=== PATIENT | female | born 1990 | race Caucasian/White ===

== ENCOUNTER 2016-12-27 20:28 | Emergency (ER) | payer BC ==
[2016-12-27 20:38] VITALS: BP 113/63
[2016-12-27] MEDS ORDERED: Bacitracin Oint 1 GM U/D Packet TOP ONE (21:14)
[2016-12-27] MEDS ORDERED: Lidocaine 1% 30 ML SDV INJECT ONE (21:14)
--- NOTE | 2016-12-27 21:42 | EDM.PDOC ---
ED HPI Trauma - General Chief Complaint: Upper Extremity Injury/Pain Stated Complaint: finger problem [id number] Time Seen by Provider: 12/27/16 21:15 Source: Reports: Patient History Limitations: Reports: No limitations - History of Present Illness INITIAL COMMENTS - FREE TEXT/NARRATIVE: This 26 yo female patient reports to the ED with a cactus needle imbedded in her left thumb. Symptom Onset Date: 12/27/16 Occurred When: just prior to arrival Occurred Where: home Method of Injury: other Severity: mild Pain/Injury Location: Reports: upper extremity, left Consciousness: Reports: no loss of consciousness Associated Symptoms: Reports: no other symptoms Allergies/ADRs: Allergies No Known Allergies Allergy (Verified 12/27/16 20:38) Home Medications: Ambulatory Orders . [No Known Home Meds] 12/27/16 [Confirmed 12/27/16] Past Medical History - Past Health History Medical/Surgical History: Denies Medical/Surgical History - Infectious Disease History Infectious Disease History: Reports: Chicken pox Social & Family History - Tobacco Use Smoking Status *Q: Never Smoker Second Hand Smoke Exposure: No - Recreational Drug Use Recreational Drug Use: No Review of Systems - Review of Systems Review Of Systems: ROS reveals no pertinent complaints other than HPI. 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 Complications:: No Course - Vital Signs Last Recorded V/S: Last Vital Signs Temp 37.2 C 12/27/16 20:35 Pulse 66 12/27/16 20:35 Resp 18 12/27/16 20:35 BP 113/63 12/27/16 20:35 Pulse Ox 100 12/27/16 20:35 - Orders/Labs/Meds Meds: Medications Discontinued Medications Generic Name Dose Route Start Last Admin Trade Name Clint PRN Reason Stop Dose Admin Bacitracin 1 dose 12/27/16 21:14 12/27/16 21:18 Bacitracin Oint 1 Gm TOP 12/27/16 21:15 1 dose ONETIME ONE Administration Lidocaine HCl 30 ml 12/27/16 21:14 12/27/16 21:17 Xylocaine-Mpf 1% INJECT 12/27/16 21:15 30 ml ONETIME ONE Administration Departure - Departure Time of Disposition: 21:39 Disposition: Home, Self-Care 01 Condition: fair Clinical Impression: Foreign body (FB) in soft tissue Instructions: Sliver Removal, Care After Forms: ED Department Discharge Care Plan Goals: The patient was advised of the examination results during the visit. The foreign body was removed without incident. The wound was dressed with a band- aid and bacitracin ointment. If the patient has any additional symptoms or concerns, the patient should follow-up with her primary care facility or return to the emergency department.
== END 2016-12-27 21:46 | disposition home or self-care (01) ==
LOC: DL.ED 20:28
DX: S60.352A Superficial foreign body of left thumb, initial encounter (principal); W45.8XXA Other foreign body or object entering through skin, initial encounter
CPT/HCPCS: 99283